=== PATIENT | male | born 1985 | race Caucasian/White ===

== ENCOUNTER 2017-05-02 23:32 | Emergency (ER) | payer MEDICAID ==
[~2017-05-02] VITALS: Ht 175.3 cm; Wt 100.0 kg
[~2017-05-02 23:32] MED LIST: CLIN-79 PO; HYDR-569 PO; ZIPR40CA2 PO
[2017-05-02] MEDS ORDERED: ziprasidone IM 20mg inj **IM only IM ONE (23:55)
[2017-05-03 00:48] LABS: ALANINE AMINOTRANSFERASE 104 U/L (12-78); ALBUMIN 4.4 G/DL (3.4-5.0); ALBUMIN/GLOBULIN RATIO 1.1 (1.1-1.5); ALKALINE PHOSPHATASE 100 IU/L (46-116); ANION GAP 13 (8-16); ASPARTATE AMINO TRANSFERASE 43 U/L (10-37); BILIRUBIN,TOTAL 0.6 MG/DL (0.1-1.0); BLOOD UREA NITROGEN 13 MG/DL (7-18); BUN/CREATININE RATIO 9.9 (5.4-32.0); CALCIUM 9.2 MG/DL (8.5-10.1); CHLORIDE 105 MMOL/L (99-107); CREATININE 1.31 MG/DL (0.60-1.10); ETHANOL < 0.010 GM/DL (0.0-0.010); GLUCOSE 99 MG/DL (70-104); POTASSIUM 3.8 MMOL/L (3.5-5.1); SODIUM 143 MMOL/L (135-145); TOTAL CARBON DIOXIDE 24.9 MMOL/L (24-32); TOTAL PROTEIN 8.4 G/DL (6.4-8.2); eGFR 63 ML/MIN
[2017-05-03 00:51] LABS: BASOPHILS # (AUTO) 0.1 X10'3 (0-0.2); BASOPHILS % (AUTO) 0.7 % (0-1); EOSINOPHILS # (AUTO) 0.2 X10'3 (0-0.9); EOSINOPHILS % (AUTO) 1.4 % (0-6); HEMATOCRIT 47.1 % (42.0-52.0); HEMOGLOBIN 16.1 g/dl (14.0-17.9); LYMPHOCYTES % (AUTO) 15.4 % (21-51); MEAN CORPUSCULAR HEMOGLOBIN 29.9 PG (27.0-31.0); MEAN CORPUSCULAR HGB CONC 34.3 % (33.0-36.5); MEAN CORPUSCULAR VOLUME 87.3 FL (78-98); MEAN PLATELET VOLUME 9.4 FL (7.4-10.4); MONOCYTES # (AUTO) 0.7 X10'3 (0-0.9); MONOCYTES % (AUTO) 5.7 % (2-12); NEUTROPHILS # (AUTO) 9.9 X10'3 (1.8-7.7); NEUTROPHILS % (AUTO) 76.8 % (42-75); PLATELET COUNT 277 X10'3 (140-440); RED BLOOD COUNT 5.39 X10'6 (4.70-6.10); RED CELL DISTRIBUTION WIDTH 12.8 % (11.5-14.5); WHITE BLOOD COUNT 12.9 X10'3 (4.5-11.0)
[2017-05-03 01:02] LABS: CLARITY,URINE CLEAR (Clear); COLOR,URINE YELLOW (Yellow); GLUCOSE, URINE NEGATIVE (Neg); KETONES,URINE TRACE mg/dl (Neg); LEUKOCYTE ESTERASE ,URINE NEGATIVE (Neg); NITRITES, URINE NEGATIVE (Neg); OCCULT BLOOD,URINE NEGATIVE (Neg); PROTEIN,URINE 30 mg/dl (Neg)
[2017-05-03 01:04] LABS: UA COLLECTION TYPE STRAIGHT CATH
[2017-05-03 01:08] LABS: BACTERIA,URINE FEW /HPF (Neg); MUCUS STRANDS MODERATE /LPF (Neg); RBC,URINE 0-2 /HPF (0-2); SQUAMOUS EPITHELIAL CELL,UR MODERATE /LPF (FEW); WBC,URINE 0-4 /HPF (0-4)
[2017-05-03 01:11] LABS: URINE AMPHETAMINE SCREEN POSITIVE (Neg); URINE BARBITUATE SCREEN NEGATIVE (Neg); URINE BENZODIAZEPINES SCREEN NEGATIVE (Neg); URINE CANNABINOID SCREEN POSITIVE (Neg); URINE COCAINE SCREEN NEGATIVE (Neg); URINE METHADONE SCREEN NEGATIVE (Neg); URINE OPIATE SCREEN NEGATIVE (Neg); URINE PHENCYCLIDINE SCREEN NEGATIVE (Neg)
[2017-05-03] MEDS ORDERED: ziprasidone IM 20mg inj **IM only IM ONE (10:55)
[2017-05-03] MEDS ORDERED: LORazepam 2 mg/ml vial IM ONE (11:00)
[2017-05-03] MEDS ORDERED: LORazepam 1 MG tablet PO ONE (21:15)
[2017-05-04] MEDS ORDERED: ziprasidone 20mg capsule PO ONE (11:15)
[2017-05-04] MEDS ORDERED: nicotine 21mg patch - 24 hr TD SCH (11:30)
[2017-05-04 13:21] VITALS: BP 127/77
== END 2017-05-04 13:35 ==
LOC: ER 23:33
DX: F20.9 Schizophrenia, unspecified (principal); F12.10 Cannabis abuse, uncomplicated; F15.10 Other stimulant abuse, uncomplicated; R45.851 Suicidal ideations; Z56.0 Unemployment, unspecified; Z88.0 Allergy status to penicillin; Z88.2 Allergy status to sulfonamides; Z79.899 Other long term (current) drug therapy
CPT/HCPCS: 36415; 80053; 80305; 80320; 81001; 84443; 85025; 96372; 99285; J2060; J3486

== ENCOUNTER 2017-06-03 21:06 | Emergency (ER) | payer MEDICAID ==
[~2017-06-03] VITALS: Ht 5954.8 cm; Wt 116.6 kg
[2017-06-03] MEDS: haloperidol 5mg tablet PO ONE (22:50)
[2017-06-03] MEDS: LORazepam 1 MG tablet PO ONE (22:50)
[2017-06-03 23:06] LABS: URINE AMPHETAMINE SCREEN NEGATIVE (Neg); URINE BARBITUATE SCREEN NEGATIVE (Neg); URINE BENZODIAZEPINES SCREEN NEGATIVE (Neg); URINE CANNABINOID SCREEN POSITIVE (Neg); URINE COCAINE SCREEN NEGATIVE (Neg); URINE METHADONE SCREEN NEGATIVE (Neg); URINE OPIATE SCREEN NEGATIVE (Neg); URINE PHENCYCLIDINE SCREEN NEGATIVE (Neg)
[2017-06-03 23:18] LABS: BASOPHILS # (AUTO) 0.1 X10'3 (0-0.2); BASOPHILS % (AUTO) 0.7 % (0-1); EOSINOPHILS # (AUTO) 0.4 X10'3 (0-0.9); EOSINOPHILS % (AUTO) 3.4 % (0-6); HEMATOCRIT 43.5 % (42.0-52.0); HEMOGLOBIN 15.3 g/dl (14.0-17.9); LYMPHOCYTES # (AUTO) 2.6 X10'3 (1.1-4.8); LYMPHOCYTES % (AUTO) 22.3 % (21-51); MEAN CORPUSCULAR HEMOGLOBIN 30.9 PG (27.0-31.0); MEAN CORPUSCULAR HGB CONC 35.1 % (33.0-36.5); MEAN PLATELET VOLUME 8.9 FL (7.4-10.4); MONOCYTES # (AUTO) 0.9 X10'3 (0-0.9); MONOCYTES % (AUTO) 7.3 % (2-12); NEUTROPHILS # (AUTO) 7.7 X10'3 (1.8-7.7); NEUTROPHILS % (AUTO) 66.3 % (42-75); PLATELET COUNT 228 X10'3 (140-440); RED BLOOD COUNT 4.95 X10'6 (4.70-6.10); RED CELL DISTRIBUTION WIDTH 13.9 % (11.5-14.5); WHITE BLOOD COUNT 11.6 X10'3 (4.5-11.0)
[2017-06-03 23:44] LABS: ALANINE AMINOTRANSFERASE 137 U/L (12-78); ALBUMIN 3.7 G/DL (3.4-5.0); ALKALINE PHOSPHATASE 94 IU/L (46-116); ANION GAP 9 (8-16); ASPARTATE AMINO TRANSFERASE 46 U/L (10-37); BILIRUBIN,TOTAL 0.3 MG/DL (0.1-1.0); BLOOD UREA NITROGEN 12 MG/DL (7-18); BUN/CREATININE RATIO 9.9 (5.4-32.0); CALCIUM 8.9 MG/DL (8.5-10.1); CHLORIDE 105 MMOL/L (99-107); CREATININE 1.21 MG/DL (0.60-1.10); ETHANOL < 0.010 GM/DL (0.0-0.010); GLUCOSE 113 MG/DL (70-104); SODIUM 142 MMOL/L (135-145); TOTAL CARBON DIOXIDE 27.6 MMOL/L (24-32); TOTAL PROTEIN 7.4 G/DL (6.4-8.2); eGFR 69 ML/MIN
[2017-06-03 23:45] LABS: ACETAMINOPHEN < 2.0 UG/ML (10-30); POTASSIUM 3.9 MMOL/L (3.5-5.1)
[2017-06-04] MEDS: nicotine 14mg patch - 24hr TD ONE (14:00)
[2017-06-04] MEDS ORDERED: OLANZapine **IM** 10 mg inj. IM PRN (14:15)
[2017-06-04] MEDS: OLANZapine 2.5MG tablet PO PRN (14:46)
[2017-06-04] MEDS: LORazepam 1 MG tablet PO ONE ×2 (14:46→20:33)
[2017-06-04 18:25] VITALS: BP 138/85
[2017-06-05] MEDS ORDERED: nicotine 14mg patch - 24hr TD SCH (08:00)
== END 2017-06-04 21:26 | disposition home or self-care (01) ==
LOC: ER 21:06
DX: F20.9 Schizophrenia, unspecified (principal); R45.851 Suicidal ideations; F12.10 Cannabis abuse, uncomplicated; F15.10 Other stimulant abuse, uncomplicated; Z56.0 Unemployment, unspecified; Z88.0 Allergy status to penicillin; Z88.2 Allergy status to sulfonamides
CPT/HCPCS: 36415; 80053; 80305; 80320; 80329; 84443; 85025; 99284; 99285

== ENCOUNTER 2017-07-04 15:51 | Emergency (ER) | payer MEDICAID ==
[~2017-07-04] VITALS: Ht 5787.1 cm; Wt 97.0 kg
[2017-07-04] MEDS ORDERED: ZIPR60CA7 PO (16:06)
[2017-07-04] MEDS ORDERED: LORazepam 1 MG tablet PO ONE (16:55)
[2017-07-04] MEDS ORDERED: chlordiazePOXIDE 25mg capsule PO ONE (16:55)
[2017-07-04 17:10] LABS: BASOPHILS # (AUTO) 0.1 X10'3 (0-0.2); BASOPHILS % (AUTO) 0.7 % (0-1); EOSINOPHILS # (AUTO) 0.3 X10'3 (0-0.9); EOSINOPHILS % (AUTO) 2.1 % (0-6); HEMATOCRIT 48.3 % (42.0-52.0); HEMOGLOBIN 16.6 g/dl (14.0-17.9); LYMPHOCYTES # (AUTO) 2.3 X10'3 (1.1-4.8); LYMPHOCYTES % (AUTO) 18.7 % (21-51); MEAN CORPUSCULAR HEMOGLOBIN 30.5 PG (27.0-31.0); MEAN CORPUSCULAR HGB CONC 34.4 % (33.0-36.5); MEAN CORPUSCULAR VOLUME 88.7 FL (78-98); MEAN PLATELET VOLUME 8.3 FL (7.4-10.4); MONOCYTES # (AUTO) 1.1 X10'3 (0-0.9); MONOCYTES % (AUTO) 9.3 % (2-12); NEUTROPHILS # (AUTO) 8.4 X10'3 (1.8-7.7); NEUTROPHILS % (AUTO) 69.2 % (42-75); PLATELET COUNT 295 X10'3 (140-440); RED BLOOD COUNT 5.45 X10'6 (4.70-6.10); RED CELL DISTRIBUTION WIDTH 13.8 % (11.5-14.5); WHITE BLOOD COUNT 12.2 X10'3 (4.5-11.0)
[2017-07-04 17:24] LABS: ALANINE AMINOTRANSFERASE 89 U/L (12-78); ALBUMIN 3.9 G/DL (3.4-5.0); ALKALINE PHOSPHATASE 91 IU/L (46-116); BILIRUBIN,TOTAL 0.4 MG/DL (0.1-1.0); BLOOD UREA NITROGEN 12 MG/DL (7-18); BUN/CREATININE RATIO 9.4 (5.4-32.0); CALCIUM 8.7 MG/DL (8.5-10.1); CREATININE 1.27 MG/DL (0.60-1.10); ETHANOL < 0.010 GM/DL (0.0-0.010); TOTAL CARBON DIOXIDE 25.5 MMOL/L (24-32); TOTAL PROTEIN 7.9 G/DL (6.4-8.2); eGFR 65 ML/MIN
[2017-07-04 17:27] LABS: ASPARTATE AMINO TRANSFERASE 37 U/L (10-37); GLUCOSE 117 MG/DL (70-104); POTASSIUM 3.9 MMOL/L (3.5-5.1)
[2017-07-04 17:30] LABS: CLARITY,URINE CLEAR (Clear); COLOR,URINE YELLOW (Yellow); GLUCOSE, URINE NEGATIVE (Neg); KETONES,URINE NEGATIVE (Neg); LEUKOCYTE ESTERASE ,URINE NEGATIVE (Neg); NITRITES, URINE NEGATIVE (Neg); OCCULT BLOOD,URINE NEGATIVE (Neg); PH,URINE 5.5 (4.8-8.0); PROTEIN,URINE NEGATIVE (Neg)
[2017-07-04 17:31] LABS: UA COLLECTION TYPE CLN CATCH MIDSTREAM
[2017-07-04 17:37] LABS: ANION GAP 12 (8-16); CHLORIDE 104 MMOL/L (99-107); SODIUM 141 MMOL/L (135-145)
[2017-07-04 17:41] LABS: URINE AMPHETAMINE SCREEN NEGATIVE (Neg); URINE BARBITUATE SCREEN NEGATIVE (Neg); URINE BENZODIAZEPINES SCREEN NEGATIVE (Neg); URINE CANNABINOID SCREEN POSITIVE (Neg); URINE COCAINE SCREEN NEGATIVE (Neg); URINE METHADONE SCREEN NEGATIVE (Neg); URINE OPIATE SCREEN NEGATIVE (Neg); URINE PHENCYCLIDINE SCREEN NEGATIVE (Neg)
[2017-07-04] MEDS: ziprasidone 20mg capsule PO SCH (22:47)
[2017-07-05] MEDS: ziprasidone 20mg capsule PO SCH ×2 (08:16→19:43)
[2017-07-05] MEDS ORDERED: LORazepam 1 MG tablet PO ONE (16:10)
[2017-07-05] MEDS ORDERED: nicotine 14mg patch - 24hr TD ONE (18:35)
[2017-07-06] MEDS: ziprasidone 20mg capsule PO SCH ×2 (08:46→20:22)
[2017-07-06] MEDS: nicotine 14mg patch - 24hr TD SCH (08:46)
[2017-07-06] MEDS: traZODone 50mg tablet PO PRN (22:24)
[2017-07-07] MEDS: ziprasidone 20mg capsule PO SCH ×2 (08:11→20:09)
[2017-07-07] MEDS: nicotine 14mg patch - 24hr TD SCH ×2 (08:11→12:55)
[2017-07-07] MEDS: traZODone 50mg tablet PO PRN (20:08)
[2017-07-08] MEDS ORDERED: LORazepam 1 MG tablet PO ONE (00:25)
[2017-07-08] MEDS: ziprasidone 20mg capsule PO SCH ×2 (08:58→20:15)
[2017-07-08] MEDS: nicotine 14mg patch - 24hr TD SCH (08:58)
[2017-07-08] MEDS: traZODone 50mg tablet PO PRN (20:15)
[2017-07-09] MEDS: ziprasidone 20mg capsule PO SCH ×2 (08:10→19:17)
[2017-07-09] MEDS: traZODone 50mg tablet PO PRN (21:52)
[2017-07-10] MEDS ORDERED: LORazepam 1 MG tablet PO ONE ×2 (00:40→11:10)
[2017-07-10] MEDS: nicotine 14mg patch - 24hr TD SCH (08:27)
[2017-07-10] MEDS: ziprasidone 20mg capsule PO SCH ×2 (08:27→20:22)
[2017-07-10] MEDS ORDERED: QUEtiapine 25mg tablet PO ONE (20:30)
[2017-07-10] MEDS ORDERED: OLANZapine 2.5MG tablet PO STA (23:49)
[2017-07-11] MEDS ORDERED: ziprasidone 20mg capsule PO SCH (08:00)
[2017-07-11] MEDS: nicotine 14mg patch - 24hr TD SCH (10:29)
[2017-07-11 17:16] VITALS: BP 109/59
[2017-07-11] MEDS ORDERED: QUEtiapine 25mg tablet PO SCH (21:00)
== END 2017-07-11 16:30 ==
LOC: ER 15:51
DX: F20.9 Schizophrenia, unspecified (principal); F41.9 Anxiety disorder, unspecified; F12.10 Cannabis abuse, uncomplicated; F15.10 Other stimulant abuse, uncomplicated; F17.200 Nicotine dependence, unspecified, uncomplicated; Z86.14 Personal history of Methicillin resistant Staphylococcus aureus infection; Z56.0 Unemployment, unspecified; Z88.0 Allergy status to penicillin; Z88.2 Allergy status to sulfonamides; Z88.8 Allergy status to other drugs, medicaments and biological substances; Z79.899 Other long term (current) drug therapy
CPT/HCPCS: 36415; 80053; 80305; 80320; 81003; 85025; 99285

== ENCOUNTER 2018-06-22 04:15 | Emergency (ER) | payer MEDICAID ==
[~2018-06-22] VITALS: Ht 180.3 cm; Wt 90.1 kg
[~2018-06-22 04:15] MED LIST changes: -CLIN-79 PO; -HYDR-569 PO; -ZIPR40CA2 PO; +ZIPR60CA7 PO
[2018-06-22 06:13] LABS: BASOPHILS # (AUTO) 0.1 X10'3 (0-0.2); EOSINOPHILS # (AUTO) 0.3 X10'3 (0-0.9); EOSINOPHILS % (AUTO) 3.9 % (0-6); HEMATOCRIT 45.8 % (42.0-52.0); HEMOGLOBIN 15.9 g/dl (14.0-17.9); LYMPHOCYTES # (AUTO) 1.6 X10'3 (1.1-4.8); LYMPHOCYTES % (AUTO) 18.5 % (21-51); MEAN CORPUSCULAR HEMOGLOBIN 30.9 PG (27.0-31.0); MEAN CORPUSCULAR HGB CONC 34.8 g/dL (33.0-36.5); MEAN CORPUSCULAR VOLUME 88.8 FL (78-98); MEAN PLATELET VOLUME 8.5 FL (7.4-10.4); MONOCYTES # (AUTO) 1.1 X10'3 (0-0.9); MONOCYTES % (AUTO) 12.4 % (2-12); NEUTROPHILS # (AUTO) 5.6 X10'3 (1.8-7.7); NEUTROPHILS % (AUTO) 64.2 % (42-75); PLATELET COUNT 245 X10'3 (140-440); RED BLOOD COUNT 5.15 X10'6 (4.70-6.10); RED CELL DISTRIBUTION WIDTH 14.4 % (11.5-14.5); WHITE BLOOD COUNT 8.7 X10'3 (4.5-11.0)
[2018-06-22 06:14] LABS: URINE AMPHETAMINE SCREEN POSITIVE (Neg); URINE BARBITUATE SCREEN NEGATIVE (Neg); URINE BENZODIAZEPINES SCREEN NEGATIVE (Neg); URINE CANNABINOID SCREEN POSITIVE (Neg); URINE COCAINE SCREEN NEGATIVE (Neg); URINE METHADONE SCREEN NEGATIVE (Neg); URINE OPIATE SCREEN NEGATIVE (Neg); URINE PHENCYCLIDINE SCREEN NEGATIVE (Neg)
[2018-06-22 06:21] LABS: ALANINE AMINOTRANSFERASE 197 U/L (12-78); ALBUMIN 3.7 G/DL (3.4-5.0); ALKALINE PHOSPHATASE 99 IU/L (46-116); ANION GAP 11 (8-16); ASPARTATE AMINO TRANSFERASE 77 U/L (10-37); BILIRUBIN,TOTAL 0.8 MG/DL (0.1-1.0); BLOOD UREA NITROGEN 12 MG/DL (7-18); BUN/CREATININE RATIO 10.3 (5.4-32.0); CALCIUM 9.1 MG/DL (8.5-10.1); CHLORIDE 104 MMOL/L (99-107); CREATININE 1.17 MG/DL (0.60-1.10); ETHANOL < 0.010 GM/DL (0.0-0.010); GLUCOSE 98 MG/DL (70-104); POTASSIUM 3.9 MMOL/L (3.5-5.1); SODIUM 139 MMOL/L (135-145); TOTAL CARBON DIOXIDE 24.5 MMOL/L (24-32); TOTAL PROTEIN 7.5 G/DL (6.4-8.2); eGFR 71 ML/MIN
--- NOTE | 2018-06-22 06:36 | NUR ---
Tele psych consult requested. Camera 1 in room.
--- NOTE | 2018-06-22 07:47 | NUR ---
Tele psych consult in progress.
[2018-06-22 10:19] VITALS: BP 109/62
[2018-06-22] MEDS ORDERED: paliperidone palmitate inj 234 MG/1.5 ML SYRINGE IM ONE (10:35)
[2018-06-22] MEDS ORDERED: QUET200T PO (10:42)
== END 2018-06-22 11:12 | disposition home or self-care (01) ==
LOC: ER 04:16
DX: R45.851 Suicidal ideations (principal); F20.9 Schizophrenia, unspecified; F41.9 Anxiety disorder, unspecified; F12.90 Cannabis use, unspecified, uncomplicated; F15.90 Other stimulant use, unspecified, uncomplicated; F17.200 Nicotine dependence, unspecified, uncomplicated; Z90.89 Acquired absence of other organs; Z88.0 Allergy status to penicillin; Z88.2 Allergy status to sulfonamides; Z88.1 Allergy status to other antibiotic agents; Z79.899 Other long term (current) drug therapy; Z56.0 Unemployment, unspecified
CPT/HCPCS: 36415; 80053; 80305; 80320; 85025; 93005; 96372; 99284

== ENCOUNTER 2018-09-29 20:17 | Inpatient (IN) | payer MEDICAID ==
[~2018-09-29] VITALS: Ht 180.3 cm; Wt 118.0 kg
[~2018-09-29 20:17] MED LIST changes: +QUET200T PO
[2018-09-29] MEDS ORDERED: vancomycin/NS 1 GM ADD-VANTAGE 250 ML IV ONE (21:30)
[2018-09-29 22:05] LABS: BASOPHILS # (AUTO) 0.2 X10'3 (0-0.2); BASOPHILS % (AUTO) 0.9 % (0-1); EOSINOPHILS # (AUTO) 0.2 X10'3 (0-0.9); EOSINOPHILS % (AUTO) 0.8 % (0-6); HEMATOCRIT 47.6 % (42.0-52.0); HEMOGLOBIN 16.4 g/dl (14.0-17.9); LYMPHOCYTES # (AUTO) 1.6 X10'3 (1.1-4.8); LYMPHOCYTES % (AUTO) 8.6 % (21-51); MEAN CORPUSCULAR HEMOGLOBIN 29.6 PG (27.0-31.0); MEAN CORPUSCULAR HGB CONC 34.5 g/dL (33.0-36.5); MEAN CORPUSCULAR VOLUME 85.8 FL (78-98); MEAN PLATELET VOLUME 8.4 FL (7.4-10.4); MONOCYTES # (AUTO) 2.3 X10'3 (0-0.9); MONOCYTES % (AUTO) 12.3 % (2-12); NEUTROPHILS # (AUTO) 14.6 X10'3 (1.8-7.7); NEUTROPHILS % (AUTO) 77.4 % (42-75); PLATELET COUNT 232 X10'3 (140-440); RED BLOOD COUNT 5.55 X10'6 (4.70-6.10); RED CELL DISTRIBUTION WIDTH 14.1 % (11.5-14.5); WHITE BLOOD COUNT 18.9 X10'3 (4.5-11.0)
[2018-09-29 22:18] LABS: ALANINE AMINOTRANSFERASE 96 U/L (12-78); ALBUMIN 3.2 G/DL (3.4-5.0); ALBUMIN/GLOBULIN RATIO 0.6 (1.1-1.5); ALKALINE PHOSPHATASE 97 IU/L (46-116); ANION GAP 11 (8-16); ASPARTATE AMINO TRANSFERASE 42 U/L (10-37); BILIRUBIN,TOTAL 0.7 MG/DL (0.1-1.0); BLOOD UREA NITROGEN 65 MG/DL (7-18); CALCIUM 8.8 MG/DL (8.5-10.1); CHLORIDE 94 MMOL/L (99-107); CREATININE 2.32 MG/DL (0.60-1.10); GLUCOSE 92 MG/DL (70-104); SODIUM 132 MMOL/L (135-145); TOTAL CARBON DIOXIDE 26.7 MMOL/L (24-32); TOTAL PROTEIN 8.4 G/DL (6.4-8.2); eGFR 32 ML/MIN
--- NOTE | 2018-09-30 00:27 | NUR ---
Received report from Augusto in the ER. Pt arrived on the unit via wheelchair and was able to walk to his bed. VSS, no signs of distress. Will continue to monitor.
[2018-09-30 00:30] VITALS: BP 125/87
[2018-09-30] MEDS: normal saline 1000ml 1,000 ML IV SCH ×3 (00:53→14:02)
[2018-09-30] MEDS ORDERED: magnesium 4gm in 100ml NS 100 ML IV PRN (00:55)
[2018-09-30] MEDS ORDERED: potassium CL 10mEq/100ml bag 100 ML IV PRN ×2 (00:55)
[2018-09-30] MEDS ORDERED: potassium Cl 20 mEq SR tablet PO PRN ×2 (00:55→16:05)
[2018-09-30] MEDS ORDERED: magnesium Cl slow-release 64mg tablet PO PRN (00:55)
[2018-09-30] MEDS ORDERED: ondansetron/PF 4mg/2ml inj IV PRN (00:55)
[2018-09-30] MEDS ORDERED: magnesium 2GM in 50ml NS 50 ML IV PRN (00:55)
[2018-09-30] MEDS ORDERED: acetaminophen 325mg tablet PO PRN (00:55)
--- NOTE | 2018-09-30 06:20 | NUR ---
Patient in room [facility]. I have received report from JASON Gaspar and had the opportunity to ask questions and assume patient care.
--- NOTE | 2018-09-30 06:38 | NUR ---
Problems reprioritized. Patient report given, questions answered & plan of care reviewed with Tyesha GOMEZ.
[2018-09-30] MEDS: K and/or MAG REPLACEMENT MC SCH (07:33)
[2018-09-30 07:44] VITALS: BP 128/73
[2018-09-30] MEDS ORDERED: levoFLOXACIN-Levaquin 750MG/D5 150 ML IV SCH (08:00)
[2018-09-30] MEDS ORDERED: vancomycin/NS 1 GM ADD-VANTAGE 250 ML IV SCH (08:00)
[2018-09-30] MEDS ORDERED: piperacillin/tazo 4.5gm/100ml 100 ML IV SCH (08:00)
[2018-09-30] MEDS ORDERED: pneumococcal 23-VAL P-sac vacc 25 mcg/0.5ml vial IMVAC ONE (10:00)
[2018-09-30] MEDS ORDERED: QUET200T30 PO (11:08)
[2018-09-30 11:16] LABS: BASOPHILS # (AUTO) 0.1 X10'3 (0-0.2); BASOPHILS % (AUTO) 0.5 % (0-1); EOSINOPHILS # (AUTO) 0.2 X10'3 (0-0.9); EOSINOPHILS % (AUTO) 1.2 % (0-6); HEMATOCRIT 43.5 % (42.0-52.0); HEMOGLOBIN 15.1 g/dl (14.0-17.9); LYMPHOCYTES # (AUTO) 1.5 X10'3 (1.1-4.8); LYMPHOCYTES % (AUTO) 10.7 % (21-51); MEAN CORPUSCULAR HEMOGLOBIN 30.1 PG (27.0-31.0); MEAN CORPUSCULAR HGB CONC 34.7 g/dL (33.0-36.5); MEAN CORPUSCULAR VOLUME 86.7 FL (78-98); MEAN PLATELET VOLUME 8.8 FL (7.4-10.4); MONOCYTES # (AUTO) 1.7 X10'3 (0-0.9); NEUTROPHILS # (AUTO) 10.4 X10'3 (1.8-7.7); NEUTROPHILS % (AUTO) 75.6 % (42-75); PLATELET COUNT 206 X10'3 (140-440); RED BLOOD COUNT 5.02 X10'6 (4.70-6.10); RED CELL DISTRIBUTION WIDTH 13.8 % (11.5-14.5); WHITE BLOOD COUNT 13.8 X10'3 (4.5-11.0)
[2018-09-30 11:26] LABS: ALBUMIN 2.7 G/DL (3.4-5.0); ANION GAP 8 (8-16); BLOOD UREA NITROGEN 48 MG/DL (7-18); BUN/CREATININE RATIO 29.3 (5.4-32.0); CALCIUM 8.6 MG/DL (8.5-10.1); CHLORIDE 99 MMOL/L (99-107); CREATININE 1.64 MG/DL (0.60-1.10); GLUCOSE 116 MG/DL (70-104); SODIUM 135 MMOL/L (135-145); TOTAL CARBON DIOXIDE 28.4 MMOL/L (24-32); eGFR 48 ML/MIN
[2018-09-30 11:32] LABS: POTASSIUM 2.8 MMOL/L (3.5-5.1)
[2018-09-30] MEDS: potassium Cl 20 mEq SR tablet PO PRN ×3 (12:05→19:40)
[2018-09-30 12:11] VITALS: BP 98/44
[2018-09-30] MEDS ORDERED: TEMA30CA PO (13:54)
[2018-09-30] MEDS ORDERED: ONDA4TAB6 PO (13:54)
[2018-09-30] MEDS ORDERED: OMEP40CA13 PO (13:54)
[2018-09-30] MEDS: HYDROcodone/acetaminophen 10/325mg tab PO PRN ×2 (17:44→21:56)
--- NOTE | 2018-09-30 18:45 | NUR ---
Problems reprioritized. Patient report given, questions answered & plan of care reviewed with JASON Gaspar.
--- NOTE | 2018-09-30 19:08 | NUR ---
Patient in room [facility]. I have received report from Tyesha GOMEZ and had the opportunity to ask questions and assume patient care.
[2018-09-30] MEDS: morphine 2 MG/ML inj. syringe IV PRN (19:40)
[2018-09-30] MEDS: lactobacillus rhamnosus 10,000 MMU CELLS/CAPSULE PO SCH (19:40)
[2018-09-30] MEDS: nicotine 14mg patch - 24hr TD SCH (19:41)
[2018-09-30 20:21] VITALS: BP 114/63
[2018-09-30] MEDS: temazepam 15mg capsule PO SCH (22:20)
[2018-09-30] MEDS: quetiapine 100mg tablet PO SCH (22:20)
[2018-10-01 00:22] VITALS: BP 116/61
[2018-10-01 05:15] LABS: BASOPHILS # (AUTO) 0.1 X10'3 (0-0.2); EOSINOPHILS # (AUTO) 0.3 X10'3 (0-0.9); MONOCYTES # (AUTO) 1.3 X10'3 (0-0.9); PLATELET COUNT 190 X10'3 (140-440)
[2018-10-01] MEDS: morphine 2 MG/ML inj. syringe IV PRN (05:18)
[2018-10-01 05:33] LABS: ALBUMIN 2.4 G/DL (3.4-5.0); ANION GAP 8 (8-16); BLOOD UREA NITROGEN 31 MG/DL (7-18); BUN/CREATININE RATIO 23.1 (5.4-32.0); CALCIUM 8.1 MG/DL (8.5-10.1); CHLORIDE 105 MMOL/L (99-107); CREATININE 1.34 MG/DL (0.60-1.10); GLUCOSE 102 MG/DL (70-104); MAGNESIUM 1.7 MG/DL (1.5-2.4); POTASSIUM 3.5 MMOL/L (3.5-5.1); SODIUM 139 MMOL/L (135-145); TOTAL CARBON DIOXIDE 25.9 MMOL/L (24-32); eGFR 61 ML/MIN
--- NOTE | 2018-10-01 06:06 | NUR ---
Problems reprioritized. Patient report given, questions answered & plan of care reviewed with Melvina GOMEZ.
[2018-10-01 06:50] LABS: BASOPHILS % (AUTO) 0.7 % (0-1); EOSINOPHILS % (AUTO) 2.7 % (0-6); HEMATOCRIT 40.9 % (42.0-52.0); HEMOGLOBIN 13.9 g/dl (14.0-17.9); LYMPHOCYTES # (AUTO) 2.4 X10'3 (1.1-4.8); LYMPHOCYTES % (AUTO) 21.5 % (21-51); MEAN CORPUSCULAR HEMOGLOBIN 29.4 PG (27.0-31.0); MEAN CORPUSCULAR HGB CONC 33.9 g/dL (33.0-36.5); MEAN CORPUSCULAR VOLUME 86.7 FL (78-98); MEAN PLATELET VOLUME 9.1 FL (7.4-10.4); MONOCYTES % (AUTO) 12.1 % (2-12); RED BLOOD COUNT 4.71 X10'6 (4.70-6.10); RED CELL DISTRIBUTION WIDTH 13.6 % (11.5-14.5); WHITE BLOOD COUNT 11.1 X10'3 (4.5-11.0)
[2018-10-01 07:00] VITALS: BP_SYST 108; BP_SYST 116; BP_DIAS 62; BP_DIAS 76
[2018-10-01] MEDS ORDERED: levoFLOXACIN-Levaquin 750MG/D5 150 ML IV SCH (08:00)
[2018-10-01] MEDS: lactobacillus rhamnosus 10,000 MMU CELLS/CAPSULE PO SCH ×2 (08:49→20:53)
[2018-10-01] MEDS: normal saline 1000ml 1,000 ML IV SCH (08:49)
[2018-10-01] MEDS: potassium Cl 20 mEq SR tablet PO PRN (08:50)
[2018-10-01] MEDS: K and/or MAG REPLACEMENT MC SCH (08:50)
[2018-10-01] MEDS: nicotine 14mg patch - 24hr TD SCH (08:50)
[2018-10-01] MEDS: pantoprazole 40mg Tablet.DR PO SCH (08:50)
[2018-10-01] MEDS: HYDROcodone/acetaminophen 10/325mg tab PO PRN ×3 (10:18→19:00)
[2018-10-01 11:00] VITALS: BP_SYST 110; BP_SYST 150; BP_DIAS 62; BP_DIAS 89
[2018-10-01] MEDS: CLINDAMYCIN/D5W 900mg/50ml 50 ML IV SCH ×3 (13:03→20:59)
[2018-10-01 20:00] VITALS: BP 131/66
[2018-10-01] MEDS: quetiapine 100mg tablet PO SCH (20:53)
[2018-10-01] MEDS: temazepam 15mg capsule PO SCH (20:53)
--- NOTE | 2018-10-01 21:17 | NUR ---
Patient in room [facility]. I have received report from JASON Hein and had the opportunity to ask questions and assume patient care. Addendum: 10/01/18 at 2125 by Nyla Alatorre RN Amended: Links added.
[2018-10-02 00:04] VITALS: BP 134/85
[2018-10-02] MEDS: CLINDAMYCIN/D5W 900mg/50ml 50 ML IV SCH ×2 (04:51→13:31)
[2018-10-02 06:20] LABS: ALBUMIN 2.1 G/DL (3.4-5.0); ANION GAP 7 (8-16); BLOOD UREA NITROGEN 19 MG/DL (7-18); BUN/CREATININE RATIO 18.8 (5.4-32.0); CHLORIDE 109 MMOL/L (99-107); CREATININE 1.01 MG/DL (0.60-1.10); GLUCOSE 92 MG/DL (70-104); MAGNESIUM 1.2 MG/DL (1.5-2.4); POTASSIUM 3.7 MMOL/L (3.5-5.1); SODIUM 140 MMOL/L (135-145); TOTAL CARBON DIOXIDE 23.7 MMOL/L (24-32); eGFR 84 ML/MIN
--- NOTE | 2018-10-02 06:25 | NUR ---
Problems reprioritized. Patient report given, questions answered & plan of care reviewed with JASON Hein. Addendum: 10/02/18 at 0626 by Nyla Alatorre RN Amended: Links added.
[2018-10-02 06:33] LABS: BASOPHILS # (AUTO) 0.1 X10'3 (0-0.2); EOSINOPHILS # (AUTO) 0.4 X10'3 (0-0.9); EOSINOPHILS % (AUTO) 3.8 % (0-6); MONOCYTES # (AUTO) 1.1 X10'3 (0-0.9)
[2018-10-02 06:35] LABS: BASOPHILS % (AUTO) 0.8 % (0-1); HEMATOCRIT 39.1 % (42.0-52.0); HEMOGLOBIN 13.4 g/dl (14.0-17.9); LYMPHOCYTES # (AUTO) 2.5 X10'3 (1.1-4.8); LYMPHOCYTES % (AUTO) 25.3 % (21-51); MEAN CORPUSCULAR HEMOGLOBIN 29.8 PG (27.0-31.0); MEAN CORPUSCULAR HGB CONC 34.2 g/dL (33.0-36.5); MEAN CORPUSCULAR VOLUME 87.1 FL (78-98); MEAN PLATELET VOLUME 8.4 FL (7.4-10.4); MONOCYTES % (AUTO) 11.4 % (2-12); NEUTROPHILS # (AUTO) 5.9 X10'3 (1.8-7.7); NEUTROPHILS % (AUTO) 58.7 % (42-75); PLATELET COUNT 189 X10'3 (140-440); RED BLOOD COUNT 4.49 X10'6 (4.70-6.10); RED CELL DISTRIBUTION WIDTH 13.8 % (11.5-14.5); WHITE BLOOD COUNT 10.1 X10'3 (4.5-11.0)
[2018-10-02 08:00] VITALS: BP 125/68
[2018-10-02] MEDS: K and/or MAG REPLACEMENT MC SCH (09:09)
[2018-10-02] MEDS: nicotine 14mg patch - 24hr TD SCH (09:12)
[2018-10-02] MEDS: lactobacillus rhamnosus 10,000 MMU CELLS/CAPSULE PO SCH (09:12)
[2018-10-02] MEDS: pantoprazole 40mg Tablet.DR PO SCH (09:12)
[2018-10-02] MEDS: HYDROcodone/acetaminophen 10/325mg tab PO PRN (09:13)
[2018-10-02 11:00] VITALS: BP 124/68
[2018-10-02] MEDS ORDERED: levoFLOXACIN 750MG TABLET PO SCH (11:00)
--- NOTE | 2018-10-02 19:14 | NUR ---
AMA FORM SIGNED.
== END 2018-10-02 19:10 | disposition left against medical advice (07) | DRG 720 ==
LOC: ER 20:18 → SUR 3N 23:59 → CMPBEDREQ 09-30 00:08
PROVIDERS: ADMIT Internal Medicine; ATTEND Internal Medicine
PROC: 3E0234Z Introduction of Serum, Toxoid and Vaccine into Muscle, Percutaneous Approach (ICD-10-PCS; principal; 2018-09-30)
DX: A41.9 Sepsis, unspecified organism (principal); N17.9 Acute kidney failure, unspecified; F20.9 Schizophrenia, unspecified; E87.6 Hypokalemia; F15.90 Other stimulant use, unspecified, uncomplicated; L03.113 Cellulitis of right upper limb; F17.210 Nicotine dependence, cigarettes, uncomplicated; F12.90 Cannabis use, unspecified, uncomplicated; Z53.21 Procedure and treatment not carried out due to patient leaving prior to being seen by health care provider; F29 Unspecified psychosis not due to a substance or known physiological condition; F41.9 Anxiety disorder, unspecified; Z86.14 Personal history of Methicillin resistant Staphylococcus aureus infection; L27.0 Generalized skin eruption due to drugs and medicaments taken internally; T36.8X5A Adverse effect of other systemic antibiotics, initial encounter; Y92.238 Other place in hospital as the place of occurrence of the external cause; Z23 Encounter for immunization; Z88.0 Allergy status to penicillin; Z88.2 Allergy status to sulfonamides; Z88.1 Allergy status to other antibiotic agents; Z79.899 Other long term (current) drug therapy
CPT/HCPCS: 36415; 73130; 80048; 80053; 83605; 83735; 85025; 87040; 87081; 90732; 96365; 99285; G0378; J1956; J2270; J3370; J3490; J7030

== ENCOUNTER 2022-10-16 15:08 | Outpatient (CLI) | payer MEDICAID ==
[~2022-10-16 15:08] MED LIST changes: +ONDA4TAB6 PO; -QUET200T PO; +QUET200T31 PO; +TEMA30CA PO; -ZIPR60CA7 PO
== END 2022-10-16 23:59 | disposition home or self-care (01) ==
LOC: RAD 15:08
PROVIDERS: ATTEND Nurse Practitioner Psychiatric/Mental Health
DX: F20.9 Schizophrenia, unspecified (principal); I51.7 Cardiomegaly
CPT/HCPCS: 93005